=== PATIENT | male | born 1975 | race Caucasian/White ===

== ENCOUNTER 2018-02-05 07:22 | Day surgery (SDC) | payer OTHER ==
[~2018-02-05 07:22] MED LIST: KETO10TA2 PO; ORPH100T PO
== END 2018-02-05 12:49 | disposition home or self-care (01) ==
LOC: AMB-ENDOS 07:22
DX: K57.30 Diverticulosis of large intestine without perforation or abscess without bleeding (principal); K64.8 Other hemorrhoids

== ENCOUNTER 2023-12-03 03:27 | Emergency (ER) | payer OTHER ==
[~2023-12-03] VITALS: Ht 188 cm; Wt 95.3 kg
[2023-12-03] MEDS ORDERED: METOCLOPRAMIDE HCL 5 MG/ML VIAL IM STA (05:45)
[2023-12-03] MEDS ORDERED: HYOSCYAMINE SULFATE 0.125 MG TAB.SUBL SL STA (05:46)
[2023-12-03] MEDS ORDERED: RINGERS SOLUTION,LACTATED 500 ML IV STA (05:47)
[2023-12-03] MEDS ORDERED: FAMOTIDINE/PF 20 MG/2 ML VIAL IV PUSH STA (05:47)
[2023-12-03] MEDS ORDERED: ONDANSETRON HCL 2 MG/ML VIAL IV ONE (06:00)
[2023-12-03 06:49] LABS: HEMATOCRIT 43.7 % (39.0-48.0); HEMOGLOBIN 15.1 g/dL (13-16.00); MEAN CELL VOLUME 84.9 fL (80.0-100.00); MEAN CORPUSCULAR HEMOGLOBIN 29.2 pg (27.00-32.0); MEAN CORPUSCULAR HGB CONC 34.4 g/dl (32.0-36.0); PLATELET COUNT 244 K/uL (150-450); RED BLOOD COUNT 5.15 M/uL (4.00-6.00); RED CELL DISTRIBUTION WIDTH 13.5 % (11.5-14.5)
[2023-12-03 07:05] LABS: CALCIUM 9.1 mg/dL (8.5-10.1); GFR 80.09; POTASSIUM 4.17 mEq/L (3.5-5.1)
== END 2023-12-03 07:22 | disposition home or self-care (01) ==
LOC: ER 03:27
DX: K52.9 Noninfective gastroenteritis and colitis, unspecified (principal); R10.9 Unspecified abdominal pain
CPT/HCPCS: 36415; 96365; 96372; 99282; J2405; J2765; J3490